=== PATIENT | female | born 1945 | race Two or more races ===

== ENCOUNTER 2018-01-16 13:36 | Outpatient (CLI) | payer OTHER | END 2018-01-16 14:00 | disposition home or self-care (01) | LOC: NUCLEAR 13:36 | DX: M81.0 Age-related osteoporosis without current pathological fracture (principal) ==

== ENCOUNTER 2020-02-21 12:08 | Outpatient (CLI) | payer OTHER | END 2020-02-21 12:27 | disposition home or self-care (01) | LOC: NUCLEAR 12:08 | PROVIDERS: ATTEND Internal Medicine | DX: M81.0 Age-related osteoporosis without current pathological fracture (principal) ==

== ENCOUNTER 2020-08-09 12:19 | Outpatient (CLI) | payer OTHER | END 2020-08-09 13:05 | disposition home or self-care (01) | LOC: OFIC 805 12:19 | PROVIDERS: ATTEND Otolaryngology Otology & Neurotology | DX: H90.3 Sensorineural hearing loss, bilateral (principal); H61.23 Impacted cerumen, bilateral ==

== ENCOUNTER 2021-09-19 08:00 | Outpatient (CLI) | payer OTHER | END 2021-09-19 08:30 | disposition home or self-care (01) | LOC: PPH VACUNA 08:00 | PROVIDERS: ATTEND Emergency Medicine Pediatric Emergency Medicine | DX: Z23 Encounter for immunization (principal) ==

== ENCOUNTER 2021-09-19 14:37 | Outpatient (CLI) | payer OTHER | END 2021-09-19 14:39 | disposition home or self-care (01) | LOC: SONOGRAMA 14:37 | PROVIDERS: ATTEND Internal Medicine | DX: E78.2 Mixed hyperlipidemia (principal); N18.31 Chronic kidney disease, stage 3a; I11.9 Hypertensive heart disease without heart failure ==

== ENCOUNTER 2021-09-21 09:32 | Outpatient (CLI) | payer OTHER | END 2021-09-21 09:33 | disposition home or self-care (01) | LOC: LAB 09:32 | PROVIDERS: ATTEND Internal Medicine | DX: I11.9 Hypertensive heart disease without heart failure (principal); E78.2 Mixed hyperlipidemia; N18.31 Chronic kidney disease, stage 3a ==